=== PATIENT | male | born 1975 | race Caucasian/White ===

== ENCOUNTER 2018-08-17 09:31 | Emergency (ER) | payer OTHER, BC ==
[2018-08-17] MEDS ORDERED: KETOROLAC TROMETHAMINE 60 MG/2 ML SDV IM ONE (09:56)
[2018-08-17] MEDS ORDERED: DEXAMETHASONE 4 MG TABLET PO ONE (09:56)
[2018-08-17] MEDS ORDERED: KETOROLAC TROMETHAMINE INJ/PF 30 MG/1 ML SDV IV ONE (10:02)
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
[2018-08-17] MEDS ORDERED: METHOCARBAMOL 500 MG TABLET PO ONE (11:59)
[2018-08-17 12:13] VITALS: BP 146/97
--- NOTE | 2018-08-17 17:52 | EKG REPORT ---
SEVERITY:- ABNORMAL ECG - SINUS RHYTHM INCOMPLETE RIGHT BUNDLE BRANCH BLOCK : Confirmed by: Carley Escobedo MD 17-Aug-2018 17:51:56
== END 2018-08-17 12:13 | disposition home or self-care (01) ==
LOC: ER 09:31
DX: S29.012A Strain of muscle and tendon of back wall of thorax, initial encounter (principal); S39.012A Strain of muscle, fascia and tendon of lower back, initial encounter; S16.1XXA Strain of muscle, fascia and tendon at neck level, initial encounter; S30.1XXA Contusion of abdominal wall, initial encounter; R07.9 Chest pain, unspecified; M25.519 Pain in unspecified shoulder; V43.52XA Car driver injured in collision with other type car in traffic accident, initial encounter; F17.200 Nicotine dependence, unspecified, uncomplicated; F12.10 Cannabis abuse, uncomplicated; I10 Essential (primary) hypertension
CPT/HCPCS: 93005; 99283; 96374; 71260; 72125; 74177; 93010; J1885